=== PATIENT | male | born 1970 | race Caucasian/White ===

== ENCOUNTER → 2022-10-09 | Day surgery (SDC) | payer BC, OTHER ==
[~2022-10-09] MED LIST: FAMOTIDINE20 MG PO; FENTANYL CITRATE/PF 100MCG/2 ML INJ ONE; HYOSCYAMINE SULFATE 0.5 MG/ML INJ ONE; LACTATED RINGER'S 1,000 ML ONE; LIDOCAINE HCL 2% LOCAL INJ 5 ML SDV VIAL INJ ONE; LIPITOR10 MG PO; LOSARTAN POTASS25 MG PO; MIDAZOLAM HCL 2 MG/2 ML VIAL ONE; PROPOFOL IV EMULSION 10 MG/ML 20 ML VIAL ONE
[2022-10-09 08:45] VITALS: BP 134/89
== END | disposition home or self-care (01) ==
LOC: OR 06:22
PROVIDERS: ATTEND Internal Medicine Gastroenterology
DX: Z12.11 Encounter for screening for malignant neoplasm of colon (principal); K63.5 Polyp of colon; K57.32 Diverticulitis of large intestine without perforation or abscess without bleeding; K64.8 Other hemorrhoids; R12 Heartburn; Z71.3 Dietary counseling and surveillance; Z01.810 Encounter for preprocedural cardiovascular examination; Z79.899 Other long term (current) drug therapy; Z68.36 Body mass index [BMI] 36.0-36.9, adult; Z86.16 Personal history of COVID-19; Z95.0 Presence of cardiac pacemaker
CPT/HCPCS: 45385; 93005; J1980; J2001; J2250; J2704; J3010; J7121; 45378